=== PATIENT | female | born 1985 | race American Indian/Alaskan Native ===

== ENCOUNTER 2017-01-15 09:48 | Outpatient (CLI) | payer MEDICAID ==
--- NOTE | 2017-01-15 11:02 | Mammography Report ---
RIGHT DIGITAL DIAGNOSTIC MAMMOGRAM with CAD: 01/15/17 09:48:00 CLINICAL: Right breast cancer status post neoadjuvant chemotherapy. COMPARISON:07/05/16 FINDINGS: Upper outer biopsy clip and no mass or other finding of the clip.The breast is predominant fatty. No mass, suspicious calcifications or architectural distortion. IMPRESSION: Complete mammographic response to chemotherapy. BI-RADS CATEGORY: 6--Known Cancer ACR BI-RADS MAMMOGRAPHIC CODES: 0 = Needs additional imaging evaluation; 1 = Negative; 2 = Benign; 3 = Probably benign; 4 = Suspicious; 5 = Malignant; 6 = Known biopsy-proven malignancy COMMENT: 1. Dense breast tissue, i.e., adenosis, fibrocystic changes, etc., may obscure an underlying neoplasm. 2. Approximately 10% of cancers are not detected with mammography. 3. A negative mammography report should not delay biopsy if a clinically suspicious mass is present. COMMENT: Patient follow-up letters are generated by our [employer] application.
== END 2017-01-15 09:49 | disposition home or self-care (01) ==
LOC: SPVWC 09:48
PROVIDERS: ATTEND Surgery
DX: C50.411 Malignant neoplasm of upper-outer quadrant of right female breast (principal)
CPT/HCPCS: G0206-RT

== ENCOUNTER 2017-08-30 08:06 | Outpatient (CLI) | payer MEDICAID ==
--- NOTE | 2017-08-30 08:49 | Mammography Report ---
BILATERAL DIGITAL DIAGNOSTIC MAMMOGRAM WITH CAD : 08/30/17 08:06:00 CLINICAL: Breast cancer survivor status post right partial mastectomy with radiation therapy and chemotherapy in 2017. COMPARISON:01/15/17 right mammogram in 06/29/16 bilateral mammogram. FINDINGS: Both breasts are mostly fatty. Slightly increased density of the right breast compared prior exams. Benign right upper outer postsurgical scar. Moderate outer skin thickening of the outer right breast. The left breast is negative. IMPRESSION: No mammographic evidence of malignancy. Benign posttreatment changes of the right breast. BI-RADS CATEGORY: 2 -- Benign RECOMMENDATION: Six month followup right mammogram and routine screening of the left breast in one year. COMMENT: Patient follow-up letters are generated via our [employer] application.
== END 2017-08-30 08:07 | disposition home or self-care (01) ==
LOC: SPVWC 08:06
PROVIDERS: ATTEND Surgery
DX: N64.89 Other specified disorders of breast (principal); Z85.3 Personal history of malignant neoplasm of breast; Z90.11 Acquired absence of right breast and nipple
CPT/HCPCS: 77066

== ENCOUNTER 2018-09-09 09:46 | Outpatient (CLI) | payer MEDICAID ==
--- NOTE | 2018-09-09 11:03 | Mammography Report ---
BILATERAL DIGITAL DIAGNOSTIC MAMMOGRAM WITH CAD : 09/09/18 09:46:00 CLINICAL: Breast cancer survivor status post right partial mastectomy with radiation therapy and chemotherapy in 2017. COMPARISON:08/30/17 FINDINGS: The breasts are mostly fatty with a few scattered bilateral fibroglandular densities. Right upper outer benign postsurgical scar. Moderate skin thickening of the right breast. No mass, suspicious architectural distortion or suspicious calcifications. IMPRESSION: No mammographic evidence of malignancy. BI-RADS CATEGORY: 2 -- Benign RECOMMENDATION: Routine mammographic screening in one year. COMMENT: Patient follow-up letters are generated via our [employer] application.
== END 2018-09-09 09:47 | disposition home or self-care (01) ==
LOC: SPVWC 09:46
PROVIDERS: ATTEND Surgery
DX: C50.411 Malignant neoplasm of upper-outer quadrant of right female breast (principal); K21.9 Gastro-esophageal reflux disease without esophagitis; E66.9 Obesity, unspecified
CPT/HCPCS: 77066